=== PATIENT | male | born 1995 | race Caucasian/White ===

== ENCOUNTER 2018-03-15 15:05 | Emergency (ER) | payer SELFPAY ==
[~2018-03-15] VITALS: Ht 172.7 cm; Wt 81.6 kg
[2018-03-15] VITALS (14 sets, daily range): BP systolic 108–148; BP diastolic 67–83
[2018-03-15] MEDS ORDERED: LORazepam 1mg tab ORAL ONE ×2 (15:30→17:15)
[2018-03-15] MEDS ORDERED: Ziprasidone 20mg cap ORAL ONE (15:30)
[2018-03-15] MEDS ORDERED: DiphenhydrAMINE 50mg/ml Inj IM ONE ×2 (15:45→17:30)
[2018-03-15] MEDS ORDERED: Haloperidol Decanoate 50mg Inj IM ONE (15:45)
[2018-03-15] MEDS ORDERED: LORazepam Inj 2mg/ml 1ml IM ONE (16:30)
[2018-03-15] MEDS ORDERED: Haloperidol 5mg/ml Inj IM ONE (17:30)
[2018-03-15 19:22] LABS: BASOPHILS % (AUTO) 0.7 % (0.0-2.0); EOSINOPHILS % (AUTO) 0.3 % (0.0-3.0); HEMATOCRIT 41.4 % (42.0-52.0); HEMOGLOBIN 13.8 G/DL (14.2-18.0); LYMPHOCYTES % (AUTO) 23.4 % (20.0-45.0); MEAN CORPUSCULAR VOLUME 89 FL (80-99); MONOCYTES % (AUTO) 7.1 % (1.0-10.0); NEUTROPHILS % (AUTO) 68.5 % (45.0-75.0); PLATELET COUNT 180 K/UL (150-450); RED BLOOD COUNT 4.67 M/UL (4.70-6.10); RED CELL DISTRIBUTION WIDTH 12.3 % (11.6-14.8); WHITE BLOOD COUNT 7.6 K/UL (4.8-10.8)
[2018-03-15 19:36] LABS: ANION GAP 12 mmol/L (5-15); BLOOD UREA NITROGEN 11 mg/dL (7-18); CALCIUM 9.2 MG/DL (8.5-10.1); CARBON DIOXIDE 25 MMOL/L (21-32); CHLORIDE 104 MMOL/L (98-107); CREATININE 0.9 MG/DL (0.55-1.30); POTASSIUM 3.2 MMOL/L (3.5-5.1); SODIUM 141 MMOL/L (136-145)
[2018-03-15 19:46] LABS: ALANINE AMINOTRANSFERASE 38 U/L (12-78); ALBUMIN/GLOBULIN RATIO 1.4 (1.0-2.7); ALKALINE PHOSPHATASE 48 U/L (46-116); ASPARTATE AMINO TRANSFERASE 34 U/L (15-37); BILIRUBIN,TOTAL 1.4 MG/DL (0.2-1.0)
[2018-03-15 19:49] LABS: BILIRUBIN,DIRECT 0.3 MG/DL (0.0-0.3)
[2018-03-15 20:05] LABS: CREATINE KINASE 576 U/L (26-308)
--- NOTE | 2018-03-15 22:04 | Emergency Room Report ---
History of Present Illness General Chief Complaint: Behavioral Complaint Source: Family Member, Medical Record, EMS Present Illness HPI Patient presents emergency department today aggressive. According the paramedics and patient's cousin, patient was vacationing with family at all. Patient is from [place]. Patient apparently escaped and took a bus to [place]. He was staying at a hotel and contact his family for money. He apparently had threatened his family. Threatened to kill them as well as himself. Patient's cousin became very concerned came here to find the patient. He felt the patient essentially confused talking to himself walking the streets. They're concerned that drugs could be involved. Patient was brought in by paramedics for further management. Patient is unreasonable aggressive and fighting. Patient threatened to hit me as well as staff.. I was unable to obtain any further history from the patient. Symptoms noted to be severe. No other modifying factors. No other associated signs and symptoms. No other complaints were noted. Allergies: Coded Allergies: No Known Allergies (Unverified , 03/15/18) Patient History Past Medical History: bipolar Past Surgical History: none Family History: none Social History: drug use Reviewed Nursing Documentation: PMH: Agreed; PSxH: Agreed Nursing Documentation-PMH Past Medical History: No History, Except For History Of Psychiatric Problem: Yes - Bipolar Review of Systems All Other Systems: limited - Patient not cooperative Physical Exam Vital Signs Date Time Temp Pulse Resp B/P (MAP) Pulse Ox O2 Delivery O2 Flow Rate FiO2 03/15/18 15:08 98.4 105 18 128/82 98 Room Air Sp02 EP Interpretation: reviewed, normal General Appearance: other - Aggressive, threatening Head: normocephalic Eyes: other - No evidence of conjunctivitis ENT: normal ENT inspection Neck: normal inspection Respiratory: normal inspection, effort normal Cardiovascular: regular rate, rhythm Gastrointestinal: non-tender, non-distended, normal bowel sounds Musculoskeletal: normal inspection Neurologic: normal inspection Psychiatric: other - Poor judgment, aggressive, suicidal, homicidal Skin: normal inspection, no rash Procedures Critical Care Time Critical Care Time Patient had a critical medical condition which untreated could potentially result in life or limb threatening injury. Total critical care time excluding procedures was approximately 45 minutes. Medical Decision Making Diagnostic Impression: Primary Impression: Acute psychosis Additional Impressions: Aggressive behavior, adult Drug abuse Medical clearance for psychiatric admission ER Course Patient presents emergency department today with aggressive behavior acute psychosis. Differential considerations include drug psychosis, Lexxel abnormality, bipolar disorder just name a few.Given the severity of the patient' s presentation I felt this is a highly complex patient. This patient required extensive workup. Because of patient's aggressive behavior felt this critical patient. Patient was able to take some oral medications but then he refused to take any further medications. Patient cannot be evaluated by psychiatry because he was very aggressive threatening. Because of fear for our staff safety as well as for patient's safety police was contacted. Police became involved to help convince the patient to receive necessary medications to keep him as well as my staff safe. Patient was in capable making decisions at that time given how aggressive he was. I felt the patient could have been on drug acute intoxication. Later when patient's laboratory workup is completed. Patient was positive for multiple substances suggesting a patient could have been acutely psychotic secondary to medications. Patient require 4. restraints for his own safety as well as mine and rest my staff. Patient received Haldol Benadryl Ativan. Patient was also given Geodon orally. Patient appears be more comfortable and sedated as well as more cooperative. Patient's 4-point restraints were discontinued as soon as was able to do so. Patient will require psychiatric evaluation when he wakes up and further management. Labs Test 03/15/18 19:00 03/15/18 19:04 Total Creatine Kinase 576 U/L (26-308) White Blood Count 7.6 K/UL (4.8-10.8) Red Blood Count 4.67 M/UL (4.70-6.10) Hemoglobin 13.8 G/DL (14.2-18.0) Hematocrit 41.4 % (42.0-52.0) Mean Corpuscular Volume 89 FL (80-99) Mean Corpuscular Hemoglobin 29.6 PG (27.0-31.0) Mean Corpuscular Hemoglobin Concent 33.4 G/DL (32.0-36.0) Red Cell Distribution Width 12.3 % (11.6-14.8) Platelet Count 180 K/UL (150-450) Mean Platelet Volume 7.7 FL (6.5-10.1) Neutrophils (%) (Auto) 68.5 % (45.0-75.0) Lymphocytes (%) (Auto) 23.4 % (20.0-45.0) Monocytes (%) (Auto) 7.1 % (1.0-10.0) Eosinophils (%) (Auto) 0.3 % (0.0-3.0) Basophils (%) (Auto) 0.7 % (0.0-2.0) Sodium Level 141 MMOL/L (136-145) Potassium Level 3.2 MMOL/L (3.5-5.1) Chloride Level 104 MMOL/L (98-107) Carbon Dioxide Level 25 MMOL/L (21-32) Anion Gap 12 mmol/L (5-15) Blood Urea Nitrogen 11 mg/dL (7-18) Creatinine 0.9 MG/DL (0.55-1.30) Estimat Glomerular Filtration Rate > 60 mL/min (>60) Glucose Level 86 MG/DL (74-106) Calcium Level 9.2 MG/DL (8.5-10.1) Total Bilirubin 1.4 MG/DL (0.2-1.0) Direct Bilirubin 0.3 MG/DL (0.0-0.3) Aspartate Amino Transf (AST/SGOT) 34 U/L (15-37) Alanine Aminotransferase (ALT/SGPT) 38 U/L (12-78) Alkaline Phosphatase 48 U/L (46-116) Total Protein 6.8 G/DL (6.4-8.2) Albumin 4.0 G/DL (3.4-5.0) Globulin 2.8 g/dL Albumin/Globulin Ratio 1.4 (1.0-2.7) Salicylates Level < 0.2 ug/mL (2.8-20) Urine Opiates Screen Negative (NEGATIVE) Acetaminophen Level < 2 MCG/ML (10-30) Urine Barbiturates Screen Negative (NEGATIVE) Phencyclidine (PCP) Screen Negative (NEGATIVE) Urine Amphetamines Screen Positive (NEGATIVE) Urine Benzodiazepines Screen Negative (NEGATIVE) Urine Cocaine Screen Positive (NEGATIVE) Urine Marijuana (THC) Screen Positive (NEGATIVE) Serum Alcohol < 3 mg/dL Last Vital Signs Date Time Temp Pulse Resp B/P (MAP) Pulse Ox O2 Delivery O2 Flow Rate FiO2 03/15/18 20:15 72 18 98 Room Air 03/15/18 15:08 98.4 128/82 Status: improved Disposition: XFER TO PSYCH HOSP/UNIT Condition: Serious Referrals: NOT CHOSEN IPA/,REFERRING (PCP) Kevin Lynn MD Mar 15, 2018 22:04
--- NOTE | 2018-03-16 00:15 | Emergency Room Report ---
Physical Exam Vital Signs Date Time Temp Pulse Resp B/P (MAP) Pulse Ox O2 Delivery O2 Flow Rate FiO2 03/15/18 15:08 98.4 105 18 128/82 98 Room Air Medical Decision Making Diagnostic Impression: Primary Impression: Acute psychosis Additional Impressions: Aggressive behavior, adult Drug abuse Medical clearance for psychiatric admission ER Course Patient was signed out to me pending psychiatric evaluation. Dad came by. He said that his son been acting abnormal starting around January. He moved out of the house to live at the dorm at the [facility]. Since then he's been having outbursts and police was called out to the [facility]. Patient had outburst and has been threatening family. He actually has several attacks that indicate the patient wanted to kill his family and then himself. Patient did not want to go back to dialysis. Said he wants to live in [place]. Because of the texts threatening others and himself, I place the patient a [phone]. Patient is medically clear for psychiatric evaluation. He is sleeping comfortably here. Last Vital Signs Date Time Temp Pulse Resp B/P (MAP) Pulse Ox O2 Delivery O2 Flow Rate FiO2 03/15/18 21:00 68 18 Room Air 03/15/18 21:00 98.2 118/78 100 Status: improved Disposition: XFER TO PSYCH HOSP/UNIT Condition: Stable Referrals: NOT CHOSEN MEET/,REFERRING (PCP) Eliu Hernadez MD Mar 16, 2018 00:15
[2018-03-16 03:49] VITALS: BP 113/76
[2018-03-16 07:29] VITALS: BP 120/82
[2018-03-16 11:00] LABS: APPEARANCE,URINE CLEAR; BILIRUBIN, URINE NEGATIVE (NEGATIVE); COLOR,URINE PALE YELLOW; GLUCOSE, URINE (UA) NEGATIVE (NEGATIVE); KETONES,URINE 3+ (NEGATIVE); LEUKOCYTE ESTERASE ,URINE NEGATIVE (NEGATIVE); NITRITE,URINE NEGATIVE (NEGATIVE); PH,URINE 8 (4.5-8.0); PROTEIN,URINE NEGATIVE (NEGATIVE); UROBILINOGEN,URINE 1 MG/DL (0.0-1.0)
[2018-03-16] MEDS ORDERED: LORazepam 1mg tab ORAL ONE (12:15)
[2018-03-16 15:15] VITALS: BP 128/80
[2018-03-16 17:04] VITALS: BP 128/80
== END 2018-03-16 16:45 ==
LOC: EDBD 15:05 → EMR 17:09
DX: F23 Brief psychotic disorder (principal); F31.9 Bipolar disorder, unspecified; F19.10 Other psychoactive substance abuse, uncomplicated; Z04.6 Encounter for general psychiatric examination, requested by authority
CPT/HCPCS: 36415; 80053; 80307; 81003; 82248; 82550; 85025; 96360; 96361; 96372; 99285; G0480; J1200; J1630; 80329